=== PATIENT | female | born 1940 | race Hispanic/Latino ===

== ENCOUNTER 2018-05-10 14:11 | Emergency (ER) | payer MEDICARE, OTHER ==
[2018-05-10 14:50] LABS: #Lymphocytes 2.4 thou/uL (1.20-3.40); #Monocytes 0.8 thou/uL (0.11-0.59); #Neutrophils 7.2 thou/uL (1.40-6.50); %Basophils 0.3 % (0.0-1.0); %Eosinophils 0.2 % (0.0-10.0); %Lymphocytes 23.1 % (21.0-51.0); %Monocytes 7.8 % (0.0-10.0); %Neutrophils 68.6 % (42.0-75.0); Hemoglobin 11.9 g/dL (12.0-16.0); Mean Corpuscular HGB CONC 33.4 g/dL (32.0-36.0); Mean Corpuscular Hemoglobin 32.3 pg (27.0-31.0); Mean Corpuscular Volume 96.7 fL (78.0-98.0); Platelet Count 377 thou/uL (130-400); RBC Distribution Width 12.3 % (11.5-14.5); Red Blood Cell (RBC) Count 3.67 mill/uL (4.20-5.40); White Blood Cell (WBC) Count 10.5 thou/uL (4.8-10.8)
[2018-05-10 15:14] LABS: ALT (SGPT) 20 U/L (8-55); AST (SGOT) 28 U/L (5-34); Albumin 3.4 g/dL (3.4-4.8); Alkaline Phosphatase 98 U/L (40-150); Anion Gap 16 mmol/L (10-20); BUN (Urea Nitrogen) 12 mg/dL (9.8-20.1); Bilirubin, Total 0.6 mg/dL (0.2-1.2); CK (CPK) 25 U/L (29-168); Calc. Creatinine Clearance 0 mL/min (70-130); Calcium 9.2 mg/dL (7.8-10.44); Carbon Dioxide 22 mmol/L (23-31); Chloride 98 mmol/L (98-107); Estimated GFR-MDRD 65; Globulin 5.5 g/dL (2.4-3.5); Glucose 117 mg/dL (83-110); Potassium 3.7 mmol/L (3.5-5.1); Protein, Total 8.9 g/dL (6.0-8.3); Sodium 132 mmol/L (136-145)
--- NOTE | 2018-05-10 15:56 | RAD ---
PORTABLE AP CHEST XRAY: DATE: 05/10/2018. HISTORY: Chest pain, abnormal EKG. COMPARISON: None available. FINDINGS: Cardiac silhouette and pulmonary vasculature are within normal limits for the portable technique of t he study. The lungs are clear. Degenerative changes are present in the spine. Vascular calcificati ons are seen in the thoracic aorta. IMPRESSION: No acute cardiopulmonary process. POS: [facility]
--- NOTE | 2018-05-10 19:02 | CT ---
CT ANGIOGRAM THORAX WITH IV CONTRAST AND 3D RECONSTRUCTIONS: 05/10/18 HISTORY: Chest pain and intermittent cough. COMPARISON: None available. FINDINGS: At the base of the neck on the left, there is area of decreased attenuation without defined margins w ith associated thickening of the more inferior aspect of the left sternocleidomastoid muscle. This ap pears to extends from the level of the carotid space to the level of the sternocleidomastoid muscle. The findings may be related to infectious process, although mass in this region related to neoplastic process cannot be entirely excluded. The visualized opacified left common carotid artery at this lev el does appear patent. The most superior extent of this low density area is incompletely imaged. The axial measurements are 3.7 cm x 3.7 cm. There does appear to be deviation of neck structures to the r ight. No filling defects are seen in the pulmonary arteries to suggest a pulmonary embolus. Thoracic aorta is normal in caliber without evidence of an aortic dissection. Minimal vascular calcif ications are seen in the thoracic aorta as well as involving the coronary arteries. There is no evidence of axillary, hilar, or mediastinal lymphadenopathy. There is a noncalcified pulmonary nodule in the right upper lobe measuring 9 mm. A few reticulonodula r densities seen in the region of the right middle lobe which could be related to minimal infectious or inflammatory process. There is atelectasis in the region of the lingula. No pleural effusion is se en. There is a large hypodense cystic structure incompletely imaged involving the majority of the mid por tion superior pole of the right kidney. Largest axial dimension is 10.2 cm, but the most inferior ex tent is not imaged. Degenerative changes are seen in the spine. IMPRESSION: 1. Area of decreased attenuation at the left base of the neck without defined margins with assoc iated thickening of the sternocleidomastoid muscle. This area of diminished attenuation is in the reg ion of the carotid space and extends laterally. Most superior extent is not seen. Findings may be rel ated to infectious process or neoplastic. Further evaluation with CT scan of the neck is recommended. 2. Pulmonary nodule right upper lobe. This measures approximately 9 mm. Follow up recommended ve rsus PET CT scan. 3. Minimal reticulonodular densities in the lingula which may be related to mild infectious or i nflammatory process. 4. Large right renal cystic lesion incompletely imaged on this exam, but does demonstrate fluid attenuation and probably represents a very large right renal cyst. The largest dimension on axial carolina ges is 10.[address] evidence of a pulmonary embolus. 6. Above findings discussed with Dr. Blackwell in the Emergency Department on 05/10/18 at 16 43 ho urs. POS: [facility]
--- NOTE | 2018-05-10 21:17 | CT ---
POSTCONTRAST SOFT TISSUE NECK CT: 05/10/18 HISTORY: Possible infection. Abnormal findings in the lower left neck on CT angiogram of the chest, incomplete ly evaluated. TECHNIQUE: Postcontrast neck CT is performed in the axial plane. Reformatted images are submitted for interpreta tion. FINDINGS: The visualized brain parenchyma is unremarkable. Adequate aeration of the visualized sinuses and mast oid air cells. Cervical spine vertebral body height is maintained. There is no fracture. Varying degr ees of central canal stenosis and foraminal narrowing on the basis of degenerative change. Symmetric attenuation of the submandibular glands. There is fatty atrophy of both parotid glands. Unr emarkable thyroid gland. The nasopharynx and oral cavity are unremarkable. Limited evaluation due to dental amalgam artifact. Midline fatty raphae of the tongue is preserved. Epiglottis has a normal caliber. Pre-epiglottic fat is preserved. There is effacement of the left piriform sinus and left vallecula. There is abnormal so ft tissue attenuation involving the mucosa and possibly extending into the submucosal component of th e supraglottic larynx on the left. There is abnormal attenuation with loss of normal fat plane in the left parapharyngeal space, left carotid space. There are mildly reactive but nonenlarged left pericl avicular lymph nodes. There is a mildly enlarged left level II lymph node measuring 1.1 x 0.9 cm. The re is mild edematous change of the overlying left sternocleidomastoid muscle. There is a hypodense fo cus with peripheral enhancement deep to the left sternocleidomastoid muscle and anterior to the left carotid space at approximately the level of the hyoid bone and thyroid cartilage measuring 1.3 x 1.7 cm. A necrotic lymph node is favored given the constellation of findings. Possibility of infected flu id collection cannot be completely excluded. Limited evaluation of the great vessels of the neck. No evidence of high stenosis based on the images provided. There is a nodule in the right upper lobe, incompletely evaluated. Refer to CT angiogram of the chest for further detail. IMPRESSION: Abnormal mucosal and submucosal prominence involving the left aspect of the supraglottic larynx. Ther e is abnormal attenuation in the left neck soft tissues with mildly reactive lymph nodes. Peripherall y enhancing hypodense focus is noted. A necrotic lymph node is favored. An infected fluid collection cannot be completely excluded. Correlate clinically. Consider directed visualization to assess for po ssible supraglottic neoplasm. Results of the study discussed with Dr. Blackwell, 05/10/18 at 5:37 p.m. Code CR POS: [facility]
== END 2018-05-10 18:39 | disposition home or self-care (01) ==
LOC: ERS 14:11
DX: R07.89 Other chest pain (principal); R05 Cough; R22.1 Localized swelling, mass and lump, neck; Z79.82 Long term (current) use of aspirin; Z79.899 Other long term (current) drug therapy
CPT/HCPCS: 70491; 71045; 71275; 80053; 82550; 83880; 84484; 85025; 85379; 93005

== ENCOUNTER 2018-05-22 17:27 | Observation (INO) | payer MEDICARE, MEDICAID ==
[2018-05-22 19:33] LABS: #Lymphocytes 0.6 thou/uL (1.20-3.40); #Monocytes 0.2 thou/uL (0.11-0.59); #Neutrophils 12.3 thou/uL (1.40-6.50); %Eosinophils 0.1 % (0.0-10.0); %Lymphocytes 4.9 % (21.0-51.0); %Monocytes 1.5 % (0.0-10.0); %Neutrophils 93.6 % (42.0-75.0); Hemoglobin 11.7 g/dL (12.0-16.0); Mean Corpuscular HGB CONC 32.4 g/dL (32.0-36.0); Mean Corpuscular Hemoglobin 31.4 pg (27.0-31.0); Mean Corpuscular Volume 96.8 fL (78.0-98.0); Mean Platelet Volume 6.5 fL (7.4-10.4); Platelet Count 420 thou/uL (130-400); RBC Distribution Width 12.6 % (11.5-14.5); Red Blood Cell (RBC) Count 3.74 mill/uL (4.20-5.40); White Blood Cell (WBC) Count 13.2 thou/uL (4.8-10.8)
[2018-05-22 19:56] LABS: Anion Gap 15 mmol/L (10-20); BUN (Urea Nitrogen) 14 mg/dL (9.8-20.1); Calc. Creatinine Clearance 0 mL/min (70-130); Calcium 9.1 mg/dL (7.8-10.44); Carbon Dioxide 26 mmol/L (23-31); Chloride 96 mmol/L (98-107); Estimated GFR-MDRD 68; Glucose 141 mg/dL (83-110); Potassium 3.7 mmol/L (3.5-5.1); Sodium 133 mmol/L (136-145)
[2018-05-22] MEDS ORDERED: Clindamycin/D5W 900 mg/50 ml Premix Bag ONE (21:47)
[2018-05-22] MEDS ORDERED: Acetaminophen 325 MG TAB PO PRN (22:16)
[2018-05-22] MEDS ORDERED: Calcium Carbonate 500 MG ChewTAB PO PRN (22:16)
[2018-05-22] MEDS ORDERED: Zolpidem Tartrate 5 MG TAB PO PRN (22:16)
[2018-05-22] MEDS ORDERED: Ondansetron PF 4 MG/2 ML Vial IVP PRN (22:16)
[2018-05-22] MEDS ORDERED: Ondansetron ODT 4 MG TAB PO PRN (22:16)
[2018-05-22 22:47] VITALS: BMI 28.7
[2018-05-23] MEDS: Sodium Chloride 0.9% 1,000 ML IV SCH ×2 (00:03→14:26)
[2018-05-23 05:41] LABS: ALT (SGPT) 14 U/L (8-55); AST (SGOT) 20 U/L (5-34); Albumin 2.6 g/dL (3.4-4.8); Alkaline Phosphatase 79 U/L (40-150); Anion Gap 17 mmol/L (10-20); BUN (Urea Nitrogen) 16 mg/dL (9.8-20.1); Bilirubin, Total 0.4 mg/dL (0.2-1.2); Calc. Creatinine Clearance 59 mL/min (70-130); Calcium 8.7 mg/dL (7.8-10.44); Carbon Dioxide 23 mmol/L (23-31); Chloride 99 mmol/L (98-107); Estimated GFR-MDRD 76; Globulin 5.6 g/dL (2.4-3.5); Glucose 167 mg/dL (83-110); Protein, Total 8.2 g/dL (6.0-8.3); Sodium 135 mmol/L (136-145)
[2018-05-23] MEDS: Clindamycin/D5W 900 MG in Premix Bag 1 BAG IVPB SCH ×3 (05:50→21:10)
--- NOTE | 2018-05-23 07:36 | HP ---
CHIEF COMPLAINT: Neck pain. HISTORY OF PRESENT ILLNESS: This is a 78-year-old female with history of dementia, who presented to our ED with chief complaint of neck mass that has purulent drainage coming out. Per the patient's family, the patient complained of voice changes about a month ago, and the patient was seen in our ED on the , a CT neck at that time showed a mass. The patient then went to her PCP's office on 05/14/2018, and was sent to ENT for biopsy. After biopsy was done, the patient was asked to follow up with ENT for results. Upon the day of presentation, trying to get the biopsy result, it was found that the biopsy result was inconclusive. A second biopsy was taken and the fluid was yellowish purulent fluid. Therefore, the ENT physician advised the family to bring the patient into our facility to be admitted and to receive IV antibiotics. Per records, the antibiotics of choice that the ENT physician wanted is clindamycin. At this point, due to the patient's mental status, the patient is not able to go to the review of systems with us. REVIEW OF SYSTEMS: Due to the patient's dementia, we are unable to obtain review of systems. PAST MEDICAL HISTORY: Possible atrial fibrillation or stroke, hypothyroidism, and dementia. FAMILY HISTORY: Reviewed and noncontributory. PAST SURGICAL HISTORY: Appendectomy and cholecystectomy. SOCIAL HISTORY: The patient denies alcohol use. Denies any illicit drug use, and has no smoking history. ALLERGIES: NO KNOWN DRUG ALLERGIES. CURRENT MEDICATIONS: 1. The patient takes levothyroxine 50 mcg. 2. Vitamin B12 of 1000 mcg. 3. Aspirin 81 mg. 4. ProAir 90. The patient has been started with clindamycin in the ED. PHYSICAL EXAMINATION: VITAL SIGNS: The patient's blood pressure is 130/77, pulse of 97, respiratory rate of 18, temperature of 98.3, and O2 saturation of 96. GENERAL: The patient is alert to self and awake; however, the patient does not know where she is and what time. HEENT: Normocephalic and atraumatic. Pupils are equally round and reactive to light. Extraocular movements are intact. No scleral icterus. Mucous membranes are moist. NECK: The patient does have a bandage on her left aspect of her neck and there is mild erythema around the area. At this point, the area is clean and dry. There is no purulent drainage that can be observed at this time. The patient's trachea is midline. Full range of motion. No JVD noted. LUNGS: Clear to auscultation bilaterally. No wheezing, no rales, no rhonchi appreciated. CARDIAC: Positive S1 and S2. Regular rate and rhythm. No murmurs, no gallops, no rubs appreciated. ABDOMEN: Soft, nontender, and nondistended. Positive bowel sounds in all quadrants. No peritoneal signs. EXTREMITIES: The patient has 5/5 upper extremities strength and 5/5 lower extremity strength. The patient has trace edema at the lower extremities at the ankles. NEUROLOGIC: Cranial nerves 2 through 12 grossly intact. No neurologic deficits noted at this time. PSYCHIATRIC: The patient is alert and oriented x1. LABORATORY DATA: WBC 13.2, hemoglobin is 11.7, hematocrit 36.2, RDW 12.6, and platelet count is 420. Sodium is 133, potassium is 3.7, chloride is 96, carbon dioxide of 26, anion gap of 15, BUN is 14, creatinine is 0.81, and glucose is 141. TSH is 1.25. ASSESSMENT AND PLAN: This is a 78-year-old female, being admitted for: 1. Neck mass with purulent drainage, likely due to neck mass with abscess? At this point, ENT is on the case. Per ENT, continue the patient on antibiotics of clindamycin. ENT doctor is going to follow up with the patient in the a.m. We will follow up with his recommendations. We will monitor the patient's CBC in the a.m. 2. History of dementia. The patient is currently waxing and waning. At this point, the patient is in bed, alert, oriented to self. We will monitor the patient closely. We will continue to manage the patient. 3. History of questionable stroke. At this point, the patient does not have any neurologic deficits. We will monitor the patient. 4. History of atrial fibrillation. Currently, the patient is not in atrial fibrillation. We will monitor the patient closely and we will continue the patient on her home medications and the current treatment. 5. Deep venous thrombosis and gastrointestinal prophylaxis. Job ID: [id number]
[2018-05-23] MEDS: Enoxaparin Sodium 40 MG/0.4 ML SYRINGE SC SCH (08:32)
[2018-05-23] MEDS: Famotidine 20 MG TAB PO SCH ×2 (08:32→21:10)
[2018-05-23] MEDS: Famotidine/PF 20 mg/2ml Vial SLOW IVP SCH ×2 (08:32→21:10)
[2018-05-23 09:14] LABS: #Lymphocytes 1.1 thou/uL (1.20-3.40); #Monocytes 0.1 thou/uL (0.11-0.59); #Neutrophils 6.8 thou/uL (1.40-6.50); %Basophils 0.2 % (0.0-1.0); %Eosinophils 0.2 % (0.0-10.0); %Lymphocytes 13.4 % (21.0-51.0); %Neutrophils 85.3 % (42.0-75.0); Hemoglobin 11.2 g/dL (12.0-16.0); Mean Corpuscular HGB CONC 32.4 g/dL (32.0-36.0); Mean Corpuscular Hemoglobin 31.5 pg (27.0-31.0); Mean Corpuscular Volume 97.4 fL (78.0-98.0); Platelet Count 391 thou/uL (130-400); RBC Distribution Width 12.5 % (11.5-14.5); Red Blood Cell (RBC) Count 3.55 mill/uL (4.20-5.40); White Blood Cell (WBC) Count 7.9 thou/uL (4.8-10.8)
[2018-05-23] MEDS ORDERED: PROVENTIL INHALER 6.7 G (200 INHALATIONS) INH PRN (16:39)
--- NOTE | 2018-05-23 16:50 | PDOC.PN ---
- Subjective Encounter Start Date: 05/23/18 Encounter Start Time: 09:20 Pt seen for followup re: neck abscess. Denies fevers or chills. denies pain. - Objective Resuscitation Status - Order Detail: 05/22/18 22:16 Resuscitation Status Routine Resuscitation Status: FULL: Full Resuscitation MAR Reviewed: Yes Vital Signs & Weight: Vital Signs (12 hours) Temp Pulse Resp BP Pulse Ox 05/23/18 16:05 98.3 F 79 20 128/64 97 05/23/18 11:36 97.7 F 81 18 120/56 L 96 05/23/18 07:40 97.7 F 75 18 119/59 L 97 Weight Weight 132 lb 11.2 oz I&O: 05/22/18 05/23/18 05/24/18 06:59 06:59 06:59 Intake Total 477 573 Balance 477 573 Result Diagrams: 05/23/18 04:43 05/23/18 04:45 Phys Exam - Physical Examination Constitutional: NAD HEENT: moist MMs dressing L side of neck Respiratory: clear to auscultation bilateral Cardiovascular: RRR Gastrointestinal: soft Neurological: moves all 4 limbs Psychiatric: normal affect Dx/Plan (1) Neck abscess Code(s): L02.11 - CUTANEOUS ABSCESS OF NECK Status: Acute Comment: continue IV clindamycin, await ENT consult (2) Hypothyroidism Code(s): E03.9 - HYPOTHYROIDISM, UNSPECIFIED Status: Chronic Comment: continue synthroid - Plan * . Review of Systems - Review of Systems Cardiovascular: negative: chest pain, palpitations, orthopnea, paroxysmal nocturnal dyspnea, edema, light headedness Gastrointestinal: negative: Nausea, Vomiting, Abdominal Pain, Diarrhea, Constipation, Melena, Hematochezia - Medications/Allergies Allergies/Adverse Reactions: Allergies Allergy/AdvReac Type Severity Reaction Status Date / Time No Known Allergies Allergy Verified 05/22/18 22:52 Medications: Current Medications Acetaminophen (Tylenol) 650 mg PO Q4H PRN PRN Reason: Headache/Fever/Mild Pain (1-3) Albuterol Sulfate (Proventil Hfa) 2 puff INH Q6H PRN PRN Reason: SOB &/or Wheezing Aspirin (Ecotrin) 81 mg PO DAILY TESS Calcium Carbonate (Tums) 1,000 mg PO Q4H PRN PRN Reason: Heartburn or Indigestion Enoxaparin Sodium (Lovenox) 40 mg SC 0900 [facility] Last Admin: 05/23/18 08:32 Dose: 40 mg Famotidine (Pepcid) 20 mg SLOW IVP Q12HR [facility] Last Admin: 05/23/18 08:32 Dose: 20 mg Famotidine (Pepcid) 20 mg PO BID [facility] Last Admin: 05/23/18 08:32 Dose: Not Given Clindamycin Phosphate/Dextrose (900 mg/ Device) 50 mls @ 100 mls/hr IVPB Q8HR [facility] Last Admin: 05/23/18 14:26 Dose: 50 mls Sodium Chloride (Normal Saline 0.9%) 1,000 mls @ 75 mls/hr IV .[id number] [facility] Last Admin: 05/23/18 14:26 Dose: 1,000 mls Levothyroxine Sodium (Synthroid) 50 mcg PO DAILY [facility] Miscellaneous Medication (Pharmacy To Dose) 1 each IVPB PRN PRN PRN Reason: Pharmacy to dose Non-Formulary Medication (Cyanocobalamin (Vitamin B-12) [Vitamin B-12]) 1,000 mcg PO DAILY [facility] Ondansetron HCl (Zofran Odt) 4 mg PO Q6H PRN PRN Reason: Nausea/Vomiting Ondansetron HCl (Zofran) 4 mg IVP Q6H PRN PRN Reason: Nausea/Vomiting Sodium Chloride (Flush - Normal Saline) 10 ml IVF Q12HR PRN PRN Reason: Saline Flush Sodium Chloride (Flush - Normal Saline) 10 ml IVF PRN PRN PRN Reason: Saline Flush Last Admin: 05/23/18 00:05 Dose: 10 ml Zolpidem Tartrate (Ambien) 5 mg PO HSPRN PRN PRN Reason: Insomnia
--- NOTE | 2018-05-23 20:45 | CON ---
DATE OF CONSULTATION: SUBJECTIVE: Ms. Zayas is a patient of ours who I have seen in clinic. She was seen last week with presentation of a neck mass. This was biopsied by fine-needle aspiration and to check for any worrisome cancer. The patient was in office yesterday for followup and saw both myself and Dr. Solorio. Results of the labs were somewhat inconclusive, did not show any form of immediate cancer, but also could not rule it out. While in the office, Dr. Solorio performed a secondary fine-needle biopsy as well as a culture of mild purulent fluid, that was extracted. He also reviewed a CT scan and felt that there could be a small infectious abscess that was causing the lump and some of the difficulty swallowing that Ms. Zayas was having. After exam, Dr. Solorio determined that it would be best if she was sent to the hospital and admitted for IV antibiotics. This was done as they checked in through the emergency room currently and she was under Med. I am seeing her today, she reports that she is doing well. Daughter is there with her. She is swallowing easier. She was able to get down some pudding and some water without any problem. Her white count upon check-in was elevated, that is now back to normal. OBJECTIVE: Ms. Zayas is a very pleasant woman. She is well developed. She is well nourished. Currently, her vital signs are stable. She is still currently on IV clindamycin as recommended. Neck mass is still present, somewhat indurated. However, again, she reports that she is able to swallow much easier. No fever or chills present. ASSESSMENT: 1. Neck mass. 2. Possible neck abscess. PLAN: Continue IV antibiotics until neck swelling reduces and is able to swallow sufficiently to take oral antibiotics and then transition over to oral clindamycin. Upon discharge, she is to see Ear, Nose, and Throat immediately upon discharge for further recommendations of treatment. Job ID: [id number]
[2018-05-24] MEDS: Sodium Chloride 0.9% 1,000 ML IV SCH (04:17)
[2018-05-24] MEDS: Clindamycin/D5W 900 MG in Premix Bag 1 BAG IVPB SCH (05:14)
[2018-05-24] MEDS ORDERED: Levothyroxine Sodium 50 MCG TAB PO SCH (06:00)
[2018-05-24] MEDS: Famotidine 20 MG TAB PO SCH (08:20)
[2018-05-24] MEDS: Enoxaparin Sodium 40 MG/0.4 ML SYRINGE SC SCH (08:21)
[2018-05-24] MEDS: Famotidine/PF 20 mg/2ml Vial SLOW IVP SCH (08:21)
[2018-05-24 08:24] VITALS: BP 118/66; TEMP 98.1
[2018-05-24] MEDS ORDERED: Aspirin 81 mg Enteric Coated Tablet PO SCH (09:00)
[2018-05-24] MEDS ORDERED: Cyanocobalamin (Vitamin B-12) 1,000 MCG TAB PO SCH (09:00)
[2018-05-24] MEDS ORDERED: Clindamycin 150 MG CAP PO SCH (10:00)
--- NOTE | 2018-05-24 14:41 | DIS ---
DATE OF ADMISSION: 05/22/2018 DATE OF DISCHARGE: 05/24/2018 PRIMARY CARE PROVIDER: Bea Celestin MD DISCHARGE DIAGNOSIS: Neck abscess. CONDITION: Condition of the patient on the day of discharge: Stable. I assessed Ms. Zayas on the day of discharge. She denies any chest pain or shortness of breath. Vital signs are stable. S1 and S2 are heard, regular. Lungs are clear to auscultation bilaterally. DISCHARGE MEDICATIONS: 1. ProAir HFA 2 puffs every 6 hours as needed. 2. Aspirin 81 mg daily. 3. Vitamin B12 of 1000 mcg daily. 4. Synthroid 50 mcg daily. 5. Clindamycin 300 mg 4 times a day for 10 more days. CONSULTATIONS DURING THIS HOSPITALIZATION: ENT, Kaleb Serrano PA-C HOSPITAL COURSE: Ms. Zayas is a pleasant 78-year-old lady, who was admitted to [facility] on May 22, 2018, for neck abscess. Please refer to Dr. Beck's history and physical note dated May 23, 2018, for further details. The patient was treated with intravenous clindamycin, subsequently stepped down to oral clindamycin. She was seen by ENT Service and was cleared for discharge, when she can take her medications orally. She should follow up with ENT Service in the next 3 days. Blood cultures at the time of discharge are preliminary and negative so far. She should follow up with ENT Service for final blood culture report. Many thanks for allowing me to participate in your patient's care. Please feel free to contact me with any questions or concerns. DISCHARGE DESTINATION: Home. Job ID: [id number]
== END 2018-05-24 12:27 | disposition home or self-care (01) ==
LOC: ERS 17:27 → 2SW 22:37
PROVIDERS: ADMIT Internal Medicine; ATTEND Internal Medicine
DX: L02.11 Cutaneous abscess of neck (principal); F03.90 Unspecified dementia, unspecified severity, without behavioral disturbance, psychotic disturbance, mood disturbance, and anxiety; E03.9 Hypothyroidism, unspecified; Z90.49 Acquired absence of other specified parts of digestive tract; Z79.82 Long term (current) use of aspirin; Z79.2 Long term (current) use of antibiotics; Z79.899 Other long term (current) drug therapy
CPT/HCPCS: 80048; 80053; 83605; 84443; 85025 ×2; 87040; 96361 ×2; 96365; 96366 ×2; 96372 ×2; 96375; 99284; G0378 ×2; 36415; 96374; J1650; J3490; S0028

== ENCOUNTER 2018-06-05 09:58 | Day surgery (SDC) | payer MEDICARE, MEDICAID ==
[2018-06-04 13:15] VITALS: BMI 28.5
[2018-06-05] MEDS ORDERED: Fentanyl 100 MCG/2 ML VIAL ONE (12:51)
[2018-06-05] MEDS ORDERED: Lidocaine 1% w/Epinephrine 1:100K 20 ML VIAL ONE (12:52)
[2018-06-05] MEDS ORDERED: EPINEPHrine 1 MG/ML AMP ONE (12:52)
[2018-06-05] MEDS ORDERED: Ondansetron PF 4 MG/2 ML Vial ONE (15:49)
[2018-06-05] MEDS ORDERED: Succinylcholine Chloride 20 MG/ML 10 ml SYRINGE FS ONE (15:49)
[2018-06-05] MEDS ORDERED: PHENYLEPHRINE-NS 100 MCG/ML 10 ML SYRINGE ONE (15:49)
[2018-06-05] MEDS ORDERED: Lidocaine 1% PF 5 ML VIAL ONE (15:49)
[2018-06-05] MEDS ORDERED: PROPOFOL 200 MG/20 ML VIAL ONE (15:49)
--- NOTE | 2018-06-06 16:18 | OP ---
DATE OF PROCEDURE: 06/05/2018 PREOPERATIVE DIAGNOSES: 1. Left neck abscess. 2. Left neck mass. POSTOPERATIVE DIAGNOSES: 1. Left neck abscess. 2. Left neck mass. PROCEDURES PERFORMED: 1. Microsuspension laryngoscopy. 2. Incision and drainage of left deep neck abscess. 3. Excision of left deep neck mass with biopsy. FINDINGS: The patient had a mass encountered within the purulent cavity, deep beyond the sternocleidomastoid towards the retropharyngeal space. Both cultures were obtained and biopsy tissue from the carotid sheath was obtained and sent for culture and identification. PROCEDURE IN DETAIL: After consent was obtained, the patient was identified and brought to the operating room and placed on table in supine position. General endotracheal anesthesia was obtained, and the patient was positioned for surgery. She underwent systematic evaluation of the oral cavity, oropharynx, hypopharynx, and larynx, and no obvious abnormalities were identified. We then proceeded with prepping and draping the patient, positioned then for surgery. The area anterior to the sternocleidomastoid muscle over the mass was delineated in the natural skin crease with a marking pen and infiltrated with 1% lidocaine with 1:100,000 epinephrine. There was a significant amount of edema in the skin and subcutaneous tissues. Incision was made and cautery was used to obtain hemostasis. Dilated blood vessels were cauterized or suture ligated. Within the phlegmon, we identified the anterior aspect of the sternocleidomastoid and carefully dissected along that. With blunt dissection, we were able to identify an anterior abscess cavity through which non-purulent clear fluid was encountered with marked inflammation and reactive tissue. Cultures were obtained and a drain was placed deep within the wound. We then dissected down and encountered a mass at the carotid sheath with a fair amount of inflammatory tissue. The great vessels were identified and specimens were taken from the mass and sent for culture, acid-fast bacteria, and histologic evaluation. Hemostasis was then obtained and the wound was closed with layers of the anterior border of sternocleidomastoid, reapproximated to the fascia in cervical fashion, and the skin closed with interrupted Prolene. Segun drain was placed to facilitate drainage. Sterile dressing was applied. The patient was awakened, extubated, and taken to recovery room in stable condition prior to discharge home. Job ID: [id number]
--- NOTE | 2018-06-16 05:43 | PQF ---
[facility] POST DISCHARGE CLINICAL DOCUMENTATION IMPROVEMENT CLARIFICATION FORM l Todays Date: 06/14/18 l Patients Name MARIANNA DRIVER l l Admit Date 06/05/18 l Disch Date 06/05/18 Radiology Nurse Name Vishal Steele Email: [email or web address] Cell: [phone] To be completed by Radiology Nurse: Present Clinical Indicators - Signs / Symptoms Results and Location in Medical Record [ ] Documentation of: [ ] [ ] Documentation of: [ ] [ ] Documentation of: [ ] [ ] Documentation of: [ ] [ ] Risks [ ] [ ] [ ] Treatment [ ] Left neck mass Query for size of excised lesion with narrowest margins [ ] [ ] To be completed by Physician: MEGA MCFARLAND The documentation in this patients record requires clarification to ensure coding compliance and accuracy. Check the appropriate box and include in your discharge summary. [ ] [ ] [ ] [ ] Please check this box if this does not apply to this patient [ ] Unable to determine [ ] Other diagnosis: Review the following information and exercise your independent professional judgment in responding to the clarification. Based upon the clinical findings, risk factors, and treatment, please clarify if you are treating one of the above probable or suspected diagnoses. Physician Signature: Date Time MTDD
--- NOTE | 2018-06-23 07:23 | EKG ---
Test Reason : PREOP Blood Pressure : / mmHG Vent. Rate : 087 BPM Atrial Rate : 087 BPM P-R Int : 128 ms QRS Dur : 070 ms QT Int : 396 ms P-R-T Axes : 048 -33 012 degrees QTc Int : 476 ms Sinus rhythm with Premature atrial complexes Left axis deviation Nonspecific ST abnormality Abnormal ECG When compared with ECG of 10-MAY-2018 14:21, Premature atrial complexes are now Present Confirmed by LINDEN MCMILLAN (2) on 06/23/2018 7:23:03 AM Referred By: ANDREY Confirmed By:LINDEN MCMILLAN
== END 2018-06-05 16:00 | disposition home or self-care (01) ==
LOC: SDC 09:58
PROVIDERS: ATTEND Specialist
PROC: 0J950ZZ Drainage of Left Neck Subcutaneous Tissue and Fascia, Open Approach (ICD-10-PCS; principal; 2018-06-05)
PROC: 0CJS8ZZ Inspection of Larynx, Via Natural or Artificial Opening Endoscopic (ICD-10-PCS; 2018-06-05)
PROC: 0JB50ZZ Excision of Left Neck Subcutaneous Tissue and Fascia, Open Approach (ICD-10-PCS; 2018-06-05)
DX: R22.1 Localized swelling, mass and lump, neck (principal); L02.11 Cutaneous abscess of neck; I10 Essential (primary) hypertension; E03.9 Hypothyroidism, unspecified; E78.5 Hyperlipidemia, unspecified; J45.909 Unspecified asthma, uncomplicated; Z79.82 Long term (current) use of aspirin; Z79.899 Other long term (current) drug therapy
CPT/HCPCS: 87070; 87116; 87205; 87206; 88184; 88307; 88312; 88341; 88342; 93005; 93010; J0171; J2001; J2405; J2704; J3010

== ENCOUNTER 2019-06-26 08:30 | Outpatient (CLI) | payer MEDICARE, MEDICAID ==
--- NOTE | 2019-06-26 11:03 | CT ---
CT BRAIN NONCONTRAST: DATE: 06-26-2019 HISTORY: 79-year-old female with Alzheimer's disease with late onset G30.1 FINDINGS: There is no midline shift or any other mass effect. There is no evidence of acute intracranial hemor rhage, large cortical infarct, obstructive hydrocephalus, or extraaxial fluid collection. The calvar ium is intact. There is diffuse parenchymal volume loss. There are mild chronic ischemic white sheri er changes due to microvascular atherosclerosis. IMPRESSION: 1) No acute intracranial findings. 2) Involutional changes. jn POS: [facility]
== END 2019-06-26 08:31 | disposition home or self-care (01) ==
LOC: CT 08:30
PROVIDERS: ATTEND Psychiatry & Neurology Neurology
DX: G30.1 Alzheimer's disease with late onset (principal); F02.80 Dementia in other diseases classified elsewhere, unspecified severity, without behavioral disturbance, psychotic disturbance, mood disturbance, and anxiety
CPT/HCPCS: 70450